=== PATIENT | female | born 1980 | race Hispanic/Latino ===

== ENCOUNTER 2019-06-05 03:10 | Emergency (ER) | payer MEDICAID, OTHER ==
[2019-06-05] MEDS ORDERED: KETOROLAC TROMETHAMINE 60 MG/2 ML VIAL ONE (03:56)
[2019-06-05] MEDS ORDERED: LIDOCAINE 5% TOPICAL PATCH TP ONE (03:56)
[2019-06-05] MEDS ORDERED: ORPHENADRINE CITRATE 30 MG/ML ML ONE (03:57)
== END 2019-06-05 06:04 | disposition home or self-care (01) ==
LOC: EDH 03:10
DX: M62.838 Other muscle spasm (principal); M54.6 Pain in thoracic spine; Z90.710 Acquired absence of both cervix and uterus; Z72.0 Tobacco use
CPT/HCPCS: 71046; 93971; 96372 ×2; 99284; J1885; J2360

== ENCOUNTER → 2019-07-13 | Outpatient (CLI) | payer MEDICAID | END | disposition home or self-care (01) | LOC: RAH 15:34 | PROVIDERS: ATTEND Physical Medicine & Rehabilitation | DX: M50.122 Cervical disc disorder at C5-C6 level with radiculopathy (principal); M48.02 Spinal stenosis, cervical region | CPT/HCPCS: 72141 ==

== ENCOUNTER 2021-02-06 15:33 | Emergency (ER) | payer MEDICAID ==
[~2021-02-06] VITALS: Ht 160 cm; Wt 99.8 kg
[2021-02-06 15:35] VITALS: BP 129/83
[2021-02-06 16:17] LABS: BASOPHILS % (AUTO) 0.5 % (0.0-5.0); LYMPHOCYTES % (AUTO) 28.2 % (21.0-51.0); MEAN CORPUSCULAR HEMOGLOBIN 30.9 pg (27.0-33.0); MEAN CORPUSCULAR VOLUME 90.7 fL (79-99); NEUTROPHILS % (AUTO) 59.9 % (40.0-77.0); PLATELET COUNT (AUTO) 325 K/uL (130-400); RED BLOOD CELL COUNT(AUTO) 4.63 MIL/uL (4.00-5.50); RED CELL DISTRIBUTION WIDTH 13.9 % (11.0-15.5); WHITE BLOOD COUNT (AUTO) 13.3 K/uL (4.8-10.8)
[2021-02-06 16:34] LABS: CREATININE 0.9 mg/dL (0.5-1.5); POTASSIUM 3.9 mmol/L (3.5-5.1)
[2021-02-06 16:38] LABS: ALBUMIN 3.5 g/dL (3.5-5.0); BILIRUBIN,TOTAL 0.4 mg/dL (0.2-1.0); TOTAL PROTEIN, SERUM 7.8 g/dL (6.0-8.3)
[2021-02-06] MEDS ORDERED: KETOROLAC 30MG VIAL (30MG/ML) IV ONE (17:30)
[2021-02-06] MEDS ORDERED: ONDANSETRON 4MG INJ IVP ONE (17:30)
[2021-02-06 17:36] LABS: APPEARANCE,URINE Clear (CLEAR); BILIRUBIN,URINE Negative (NEGATIVE); COLOR,URINE Yellow (YELLOW); GLUCOSE, URINE (UA) Negative (NEGATIVE); KETONES,URINE Negative (NEGATIVE); LEUKOCYTE ESTERASE ,URINE Small (NEGATIVE); NITRATE,URINE Negative (NEGATIVE); OCCULT BLOOD,URINE Moderate (NEGATIVE); PROTEIN,URINE Trace mg/dL (NEGATIVE)
[2021-02-06 17:39] LABS: CRP QUANTITATIVE 3.9 mg/L (0.00-9.0)
[2021-02-06 17:45] LABS: BACTERIA,URINE Few /HPF (None Seen); MUCUS,URINE Few LPF (None Seen); SQUAMOUS EPITHELIAL CELL,UR Few /HPF (0-2)
[2021-02-06] MEDS ORDERED: ONDA4TAB10 PO (18:53)
== END 2021-02-06 19:00 | disposition home or self-care (01) ==
LOC: EDH 15:33
DX: N20.0 Calculus of kidney (principal); E66.9 Obesity, unspecified; Z79.899 Other long term (current) drug therapy
CPT/HCPCS: 36415; 74176; 80053; 81001; 81025; 82150; 83690; 85025; 86140; J1885; J2405